=== PATIENT | male | born 1955 | race Hispanic/Latino ===

== ENCOUNTER 2020-06-18 09:12 | Emergency (ER) | payer BC ==
[2020-06-18] MEDS ORDERED: LORazepam 2 MG/ML VIAL IM PRN (09:50)
[2020-06-18] MEDS ORDERED: HALOPERIDOL LACTATE 5 MG/1 ML INJ IM PRN (09:50)
[2020-06-18] MEDS ORDERED: SODIUM CHLORIDE 0.9% 1000 ML 1,000 ML IV ONE ×2 (09:50→11:09)
[2020-06-18] MEDS ORDERED: DIPHtheria,PERTUSSIS(ACELL),TETANUS VACCINE/PF 0.5 ML VIAL IM ONE (09:51)
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
[2020-06-18 10:14] LABS: Bacteria,Urine 3+ /HPF (Negative); Bilirubin,Urine NEG (Negative); Blood,Urine LG (Negative); Color,Urine Red (Yellow); Mucus,Urine 3+ /HPF
[2020-06-18 10:15] LABS: Protein,Urine >2000 mg dL mg/dL (Negative); RBC,Urine > 182.0 /HPF (0.0-6.0); WBC,Urine > 182.0 /HPF (0.0-6.0)
[2020-06-18 10:20] LABS: Amphetamine Screen,Urine Negative; Benzodiazepines Screen,Urine Negative; Cannabinoid Screen,Urine Negative; Cocaine Screen,Urine Negative; Methadone Screen,Urine Negative; Opiate Screen,Urine Negative
[2020-06-18 10:34] LABS: Hemoglobin 16.7 gm/dl (11.8-15.2); Mean Corpuscular HGB Conc 35 % (32-34); Mean Corpuscular Volume 92 fl (84-94); Platelet Count 282 K/mm3 (140-440); Red Blood Count 5.24 M/mm3 (3.65-5.03)
[2020-06-18 10:47] LABS: INR 1.16 (0.87-1.13)
[2020-06-18 11:04] LABS: Alanine Aminotransferase 33 units/L (7-56); Albumin 4.2 g/dL (3.9-5); BUN/Creatinine Ratio 31; Blood Urea Nitrogen 25 mg/dL (9-20); Calcium 9.1 mg/dL (8.4-10.2); Hemolysis Index 10
[2020-06-18] MEDS ORDERED: MORPHINE 4 MG/1 ML INJ IV ONE ×2 (11:38→12:42)
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
[2020-06-18 14:21] VITALS: BP 119/81
== END 2020-06-18 14:50 | disposition short-term general hospital (02) ==
LOC: ED 09:12
DX: S32.019A Unspecified fracture of first lumbar vertebra, initial encounter for closed fracture (principal); S60.511A Abrasion of right hand, initial encounter; R31.9 Hematuria, unspecified; M25.562 Pain in left knee; F32.9 Major depressive disorder, single episode, unspecified; F14.10 Cocaine abuse, uncomplicated; Z72.89 Other problems related to lifestyle; Z98.890 Other specified postprocedural states; V89.2XXA Person injured in unspecified motor-vehicle accident, traffic, initial encounter; W22.10XA Striking against or struck by unspecified automobile airbag, initial encounter; Y93.89 Activity, other specified; Y92.410 Unspecified street and highway as the place of occurrence of the external cause; Y99.8 Other external cause status
CPT/HCPCS: 36415; 71045; 72170; 73130; 73590; 74177; 80053; 80307; 81001; 82550; 83735; 85027; 85610; 90471; 90715; 93005; 96361; 96374; 96376; 99285; J2270; J7030; Q9967; 80320; G0480